=== PATIENT | male | born 1985 | race Hispanic/Latino ===

== ENCOUNTER 2024-06-21 22:36 | Emergency (ER) | payer BC, SELFPAY ==
[2024-06-21 22:38] VITALS: BP 202/122
[2024-06-22 00:20] VITALS: BP 92/52
[2024-06-22 00:23] VITALS: BP 115/75
--- NOTE | 2024-06-22 00:49 | ED.SKININJ ---
HPI-Injury
General
Chief Complaint: Skin Surface Trauma
Source: patient
Exam Limitations: none
Time Seen by Provider: 06/22/24 00:11
Nursing documentation reviewed up to this point in time: agreed with
History of Present Illness-Injury
Initial Injury comments:
Pleasant 39-year-old male presents with bleeding from his left middle finger. He was cutting with a knife when he inadvertently sliced the tip of his middle finger. Unknown tetanus status. Patient states that this occurred at 6 PM. He realized
that since there is no flap there could be no repair but came in because the bleeding was persistent. Denies any other injury. Wound was thoroughly cleaned upon arrival.
Past History
Past History
ED Past Medical History: None
Social History
Personal:
Living: with family
Employment: Employed ([employer] operator)
Review of Systems
Review of Systems
Allergies reviewed?: Yes
All Other Systems: ROS reviewed and negative except as documented in HPI and ROS
Constitutional: Reports no symptoms
EENT: Reports no symptoms
Respiratory: Reports no symptoms
Cardiac: Reports no symptoms
ABD/GI: Reports no symptoms
: Reports no symptoms
Musculoskeletal: Reports no symptoms
Skin: Reports no symptoms
Neurological: Reports no symptoms
Endocrine: Reports no symptoms
Hematologic/Lymphatic: Reports no symptoms
Psychiatric: Reports anxiety
Phy Exam
General Physical Exam
General Presentation: well appearing
General age: appears stated age
General Skin: warm
General Habitus: normal
General Mental: alert
General Hydration: appears well hydrated
Musculoskeletal Exam
Musculoskeletal Exam: full ROM and neuro vasc intact
Psychiatric Exam
Psychiatric Exam: normal mood/affect and anxious
Course
Orders/Labs/Results
Orders:
Orders
06/22/24 00:48
Tetanus/Diphth/Acelpertussis [Adacel] 0.5 ml IM .ONCE ONE
Vital Signs
Initial and Last Documented VS:
Initial Vital Signs
Temp Pulse Resp BP Pulse Ox
98 F 68 20 202/122 100
06/21/24 22:38 06/21/24 22:38 06/21/24 22:38 06/21/24 22:38 06/21/24 22:38
Last Documented Vital Signs
Temp Pulse Resp BP Pulse Ox
98 F 64 20 115/75 100
06/21/24 22:38 06/22/24 01:10 06/22/24 01:10 06/22/24 01:10 06/21/24 22:38
*Critical Care Note
Total Time (30-74mins, 75-104mins- exclusive of procedures): Not Applicable
ED Attending Note
-
Portions of this chart may have been created with voice recognition software.� Occasional wrong word or��sound alike� substitutions may have occurred due to the inherent limitations of voice recognition software.
Discharge Plan
Departure
Patient Disposition: Home (Routine Discharge)
Date of Disposition: 06/22/24
Time of Disposition: 00:54
Patient with high blood pressure during this ER visit?: No
Condition: Good
Discharge Problem:
Avulsion of skin of finger
Instructions: Wound Care (DC), Laceration
Referrals:
Kenna Lou CRNP [Family Provider] -
Activity Restrictions/Additional Instructions:
Your tetanus shot was updated today.
It was a pleasure meeting you and taking part in your care. We hope for your continued healing and wellness.
Please read discharge instructions in their entirety. However, they are for general education and may not describe your exact diagnosis at discharge. Information on your ER visit and medical conditions were discussed with you along with appropriate
follow up information...
If indicated, please take your medications as instructed and indicated on discharge paperwork.
Please schedule a follow up appointment as directed. Call to schedule an appointment
Please return to the emergency department with ANY change in, persisting, or worsening of symptoms. If any of your symptoms do not improve, or persist, or become more severe within 6-12 hours, please return to the emergency department for further
care.
Please return to the emergency department if you develop a headache, neck pain/stiffness, fever greater than 100.4F, chest pain, shortness of breath, persistent nausea, vomiting, slurred speech, difficulty walking, numbness/tingling, weakness, signs
of infection or any other symptoms that are worrisome to you.
If you have any questions or concerns please do not hesitate to call the Hospital at or E-mail me directly at [email or web address]
Interventions
Interventions:
*Risk Screen - Suicide Last Done: 06/21/24 22:38
*General Assessment Last Done: 06/21/24 23:06
*Neglect/Abuse Screening Last Done: 06/21/24 22:38
*Nursing Disposition Last Done: 06/22/24 01:10
ED-Skin Assessment Last Done: 06/21/24 23:06
Discharge Date and Time
Discharge Date/Time: 06/22/24 01:12
Print Language: CAMBODIAN
[2024-06-22] MEDS: ADACEL 0.5 ML IM (00:52)
[2024-06-22 01:10] VITALS: BP 115/75
== END 2024-06-22 01:12 | disposition home or self-care (01) ==
LOC: EMR 22:36
PROVIDERS: EMERGENCY PHYSICIAN Student in an Organized Health Care Education/Training Program; FAMILY PHYSICIAN Nurse Practitioner
DX: S61.203A Unspecified open wound of left middle finger without damage to nail, initial encounter (principal); W26.0XXA Contact with knife, initial encounter; Y99.0 Civilian activity done for income or pay; Z23 Encounter for immunization
CPT/HCPCS: 99282; 90471; 90715

== ENCOUNTER → 2025-11-11 09:06 | Outpatient (REF) | payer OTHER, SELFPAY | LOC: RAD 09:06 | PROVIDERS: ATTENDING PHYSICIAN Nurse Practitioner | DX: R91.1 Solitary pulmonary nodule (principal) | CPT/HCPCS: 71250 ==